=== PATIENT | female | born 1985 | race Caucasian/White ===

== ENCOUNTER 2016-03-24 14:56 | Inpatient (IN) | payer OTHER ==
[~2016-03-24] VITALS: Ht 182.9 cm; Wt 91.0 kg
[~2016-03-24 14:56] MED LIST: BUPROPRION; FLEXERIL 1010 MG/TAB PO; NO HOME MEDICATIONS; TUSS PO; ULTRAM 50MG TAB50 MG PO; ZOLOFT 25MG25 MG PO
[2016-04-08] VITALS (64 sets, daily range): BP systolic 12–128; BP diastolic 50–80; PULSE 63–108; TEMP 97–98.7
[2016-04-08] MEDS ORDERED: BENADRYL25 M2 PO (06:53)
[2016-04-08] MEDS ORDERED: TYLENOL 500MG500 MG PO (06:53)
[2016-04-08] MEDS ORDERED: LEVEMIR FLEX100 U/ML SQ (06:54)
[2016-04-08] MEDS ORDERED: PRENATAL (06:54)
[2016-04-08 07:42] LABS: BASO % 0.2 % (0.0-2.0); EOS # 0.1 (0.0-0.7); EOS % 1.5 % (0-4.0); GRAN # 3.7 (1.4-6.5); GRAN % 61.6 % (42.2-75.2); LYMPH # 1.7 (1.2-3.4); LYMPH % 28.5 % (20.0-51.0); MEAN CELL VOLUME 85 fl (80.0-100.0); MEAN CORPUSCULAR HGB CONC 33 g/dl (33.0-37.0); MEAN PLATELET VOLUME 9.1 fl (7.4-10.4); MONO # 0.5 (0.1-0.6); MONO % 7.5 % (1.7-9.3); PLATELET COUNT 175 K/mm3 (130-400); RED BLOOD COUNT 3.83 M/mm3 (4.10-5.30); REDCELL DISTRIBUTION WIDTH-CV 13.9 % (11.5-14.5)
[2016-04-08] MEDS ORDERED: NOVOLOG 100U100 U/M1 SQ ×2 (07:46→07:47)
[2016-04-08 07:55] LABS: HEMATOCRIT 32.7 % (37.0-47.0); HEMOGLOBIN 10.7 g/dl (12.5-16.0); MEAN CORPUSCULAR HEMOGLOBIN 28 pg (27.0-31.0)
[2016-04-08] MEDS ORDERED: IBU800 M1 PO (22:20)
[2016-04-08] MEDS ORDERED: PERCOCET 325 MG1 TA2 PO (22:20)
[2016-04-09] VITALS (7 sets, daily range): BP systolic 99–112; BP diastolic 51–72; PULSE 59–86; TEMP 97.6–98.1
== END 2016-04-09 23:25 | disposition home or self-care (01) | DRG 775 ==
LOC: OB 04-08 06:28 → LDR 04-08 06:28 → OB 04-09 00:15 → EDSTATUS 04-16 07:17 → LDRO 04-16 14:55
PROVIDERS: Obstetrics & Gynecology
PROC: 10E0XZZ Delivery of Products of Conception, External Approach (ICD-10-PCS; principal; 2016-04-08)
PROC: 3E033VJ Introduction of Other Hormone into Peripheral Vein, Percutaneous Approach (ICD-10-PCS; 2016-04-08)
DX: O24.414 Gestational diabetes mellitus in pregnancy, insulin controlled (principal); Z3A.39 39 weeks gestation of pregnancy; Z37.0 Single live birth
CPT/HCPCS: J1815; J2405; J2590; J7030; J7042; J7120

== ENCOUNTER 2017-03-24 18:40 | Emergency (ER) | payer OTHER ==
[~2017-03-24] VITALS: Ht 182.9 cm; Wt 81.8 kg
[~2017-03-24 18:40] MED LIST changes: +BENADRYL25 M2 PO; +IBU800 M1 PO; +LEVEMIR FLEX100 U/ML SQ; +NOVOLOG 100U100 U/M1 SQ; +PERCOCET 325 MG1 TA2 PO; +PRENATAL; +TYLENOL 500MG500 MG PO
[2017-03-24 18:43] VITALS: TEMP 98.7
[2017-03-24] MEDS ORDERED: ZOLOFT 100MG100 MG PO (18:46)
[2017-03-24] MEDS ORDERED: MINIPRESS 1M1 MG/CAP (18:46)
[2017-03-24] MEDS ORDERED: TAMIFLU 75MG75 MG PO (19:12)
[2017-03-24] MEDS ORDERED: NAPROXEN 3375 MG/TAB PO (19:12)
[2017-03-24 19:32] VITALS: BP 143/88; PULSE 100
== END 2017-03-24 19:31 | disposition home or self-care (01) ==
LOC: COL.ER 18:40
DX: J10.1 Influenza due to other identified influenza virus with other respiratory manifestations (principal)

== ENCOUNTER 2017-04-02 19:15 | Inpatient (IN) | payer OTHER ==
[~2017-04-02] VITALS: Ht 172.7 cm; Wt 80.8 kg
[~2017-04-02 19:15] MED LIST changes: +MINIPRESS 1M1 MG/CAP; +NAPROXEN 3375 MG/TAB PO; +TAMIFLU 75MG75 MG PO; +ZOLOFT 100MG100 MG PO
[2017-04-02 20:50] LABS: BASO % 0.3 % (0.0-2.0); EOS # 0.1 (0.0-0.7); EOS % 0.9 % (0-4.0); GRAN # 6.5 (1.4-6.5); GRAN % 66.7 % (42.2-75.2); HEMATOCRIT 41.8 % (37.0-47.0); HEMOGLOBIN 14.6 g/dl (12.5-16.0); LYMPH # 2.4 (1.2-3.4); LYMPH % 24.7 % (20.0-51.0); MEAN CELL VOLUME 88 fl (80.0-100.0); MEAN CORPUSCULAR HEMOGLOBIN 31 pg (27.0-31.0); MEAN CORPUSCULAR HGB CONC 35 g/dl (33.0-37.0); MEAN PLATELET VOLUME 9.3 fl (7.4-10.4); MONO # 0.7 (0.1-0.6); MONO % 6.7 % (1.7-9.3); PLATELET COUNT 244 K/mm3 (130-400); RED BLOOD COUNT 4.74 M/mm3 (4.10-5.30); REDCELL DISTRIBUTION WIDTH-CV 12.1 % (11.5-14.5)
[2017-04-02 20:51] LABS: COLLECTION METHOD CLEAN CATCH
[2017-04-02 20:56] LABS: PH 6 (5-8); SQUAMOUS EPITHELIAL 0-2 /hpf; URINE APPEARANCE Clear; URINE BACTERIA None Seen /hpf; URINE BILIRUBIN Negative (NEGATIVE); URINE BLOOD Negative (NEGATIVE); URINE COLOR Straw; URINE GLUCOSE 3+ (NEGATIVE); URINE KETONE 1+ (NEGATIVE); URINE LEUKOCYTE ESTERASE Negative (NEGATIVE); URINE NITRATE Negative (NEGATIVE); URINE PROTEIN(semi-quant) Negative (NEGATIVE); URINE RBC 0-2 /hpf; URINE UROBILINOGEN Negative (NEGATIVE)
[2017-04-02 21:01] LABS: ALBUMIN 4.8 gm/dL (3.5-5.0); BILIRUBIN,TOTAL 0.7 mg/dL (0.0-1.0); C-REACTIVE PROTEIN 5.9 mg/dL (0.0-0.9); CALCIUM 10.1 mg/dL (8.4-10.2); CREATININE, serum 0.68 mg/dL (0.52-1.25); POTASSIUM 4.3 mmol/L (3.4-5.0)
[2017-04-02 21:04] LABS: INFLUENZA A NEGATIVE; INFLUENZA B NEGATIVE
[2017-04-02] MEDS ORDERED: ZORVOLEX18 MG PO (22:26)
[2017-04-02] MEDS ORDERED: NEURONTIN300 MG/CAP PO (22:26)
[2017-04-02 23:38] VITALS: BP 123/73; PULSE 98; TEMP 98.4
[2017-04-03 04:37] VITALS: BP 126/66; PULSE 91; TEMP 98.6
[2017-04-03 06:54] LABS: BASO % 0.3 % (0.0-2.0); EOS # 0.1 (0.0-0.7); EOS % 1.6 % (0-4.0); GRAN # 5.6 (1.4-6.5); GRAN % 62.6 % (42.2-75.2); HEMATOCRIT 38.9 % (37.0-47.0); HEMOGLOBIN 13.4 g/dl (12.5-16.0); LYMPH # 2.3 (1.2-3.4); LYMPH % 25.8 % (20.0-51.0); MEAN CELL VOLUME 90 fl (80.0-100.0); MEAN CORPUSCULAR HEMOGLOBIN 31 pg (27.0-31.0); MEAN CORPUSCULAR HGB CONC 34 g/dl (33.0-37.0); MEAN PLATELET VOLUME 9.4 fl (7.4-10.4); MONO # 0.8 (0.1-0.6); MONO % 8.9 % (1.7-9.3); PLATELET COUNT 208 K/mm3 (130-400); RED BLOOD COUNT 4.33 M/mm3 (4.10-5.30); REDCELL DISTRIBUTION WIDTH-CV 12.2 % (11.5-14.5)
[2017-04-03 07:31] LABS: CALCIUM 8.9 mg/dL (8.4-10.2); CREATININE, serum 0.53 mg/dL (0.52-1.25); POTASSIUM 4.3 mmol/L (3.4-5.0)
[2017-04-03 09:29] VITALS: BP 143/76; PULSE 103; TEMP 97.8
[2017-04-03 13:43] VITALS: BP 131/80; PULSE 102; TEMP 98.5
[2017-04-03] MEDS ORDERED: FREESTYLE PREC1 EAC5 MC (15:15)
[2017-04-03] MEDS ORDERED: LANCETS MC (15:16)
[2017-04-03] MEDS ORDERED: LANTUS SOLOS100 U/ML SQ (15:17)
[2017-04-03] MEDS ORDERED: BD ALCOHOL1 SWA TP (15:18)
[2017-04-03] MEDS ORDERED: THE MEDICINE SH1 DE3 MC (15:18)
[2017-04-03] MEDS ORDERED: GLUCOPHAGE500 MG/TAB PO (15:32)
[2017-04-03] MEDS ORDERED: [UNRECOGNIZED DRUG - SUPPLY] (15:33)
[2017-04-03] MEDS ORDERED: GLUCOSE TEST ST1 DEV MC (15:34)
[2017-04-03] MEDS ORDERED: NOVOLOG FLEX100 U/ML SQ (15:34)
== END 2017-04-03 16:22 | disposition home or self-care (01) | DRG 639 ==
LOC: COL.ER 19:15 → SURG 21:17
PROVIDERS: Family Medicine; Nurse Practitioner
DX: E11.65 Type 2 diabetes mellitus with hyperglycemia (principal); J20.9 Acute bronchitis, unspecified; Z20.828 Contact with and (suspected) exposure to other viral communicable diseases
CPT/HCPCS: J1815; J7030

== ENCOUNTER → 2017-04-05 | Outpatient (CLI) | payer OTHER ==
[~2017-04-05] MED LIST changes: +BD ALCOHOL1 SWA TP; +FREESTYLE PREC1 EAC5 MC; +GLUCOPHAGE500 MG/TAB PO; +GLUCOSE TEST ST1 DEV MC; +LANCETS MC; +LANTUS SOLOS100 U/ML SQ; +NEURONTIN300 MG/CAP PO; +NOVOLOG FLEX100 U/ML SQ; +THE MEDICINE SH1 DE3 MC; +ZORVOLEX18 MG PO; +[UNRECOGNIZED DRUG - SUPPLY]
== END ==
LOC: SUN.DIA 13:48
DX: E11.9 Type 2 diabetes mellitus without complications (principal); Z79.4 Long term (current) use of insulin; Z68.24 Body mass index [BMI] 24.0-24.9, adult; Z71.3 Dietary counseling and surveillance
CPT/HCPCS: G0108

== ENCOUNTER → 2017-04-18 | Outpatient (CLI) | payer OTHER | LOC: SUN.DIA 14:08 | DX: E11.9 Type 2 diabetes mellitus without complications (principal); Z79.4 Long term (current) use of insulin; Z71.3 Dietary counseling and surveillance | CPT/HCPCS: G0108 ==

== ENCOUNTER → 2017-05-16 | Outpatient (CLI) | payer OTHER | LOC: SUN.DIA 14:27 | DX: E11.9 Type 2 diabetes mellitus without complications (principal); Z79.4 Long term (current) use of insulin; Z68.25 Body mass index [BMI] 25.0-25.9, adult; Z71.3 Dietary counseling and surveillance | CPT/HCPCS: G0108 ==

== ENCOUNTER → 2017-06-13 | Outpatient (CLI) | payer OTHER | LOC: SUN.DIA 11:36 | DX: E11.9 Type 2 diabetes mellitus without complications (principal); Z79.4 Long term (current) use of insulin; Z68.25 Body mass index [BMI] 25.0-25.9, adult; Z71.3 Dietary counseling and surveillance | CPT/HCPCS: G0108 ==

== ENCOUNTER → 2017-07-25 | Outpatient (CLI) | payer OTHER | LOC: SUN.DIA 13:36 | DX: E11.9 Type 2 diabetes mellitus without complications (principal); Z79.4 Long term (current) use of insulin | CPT/HCPCS: G0108 ==

== ENCOUNTER → 2017-08-24 | Outpatient (CLI) | payer OTHER | LOC: SUN.DIA 08:48 | DX: E11.9 Type 2 diabetes mellitus without complications (principal); Z79.4 Long term (current) use of insulin; Z68.25 Body mass index [BMI] 25.0-25.9, adult; Z71.3 Dietary counseling and surveillance | CPT/HCPCS: G0108 ==

== ENCOUNTER 2019-03-05 20:59 | Emergency (ER) | payer BC, OTHER ==
[~2019-03-05] VITALS: Ht 182.9 cm; Wt 79.5 kg
[2019-03-05 21:02] VITALS: BP 114/70; TEMP 97.5
[2019-03-05] MEDS ORDERED: VALTREX 50500 MG/TAB PO (21:46)
[2019-03-05 22:04] VITALS: PULSE 78
== END 2019-03-05 22:04 | disposition home or self-care (01) ==
LOC: COL.ER 20:59
DX: B99.9 Unspecified infectious disease (principal); H10.89 Other conjunctivitis

== ENCOUNTER 2020-02-22 19:53 | Emergency (ER) | payer OTHER ==
[~2020-02-22] VITALS: Ht 180.3 cm; Wt 75.0 kg
[~2020-02-22 19:53] MED LIST changes: +VALTREX 50500 MG/TAB PO
[2020-02-22 19:59] VITALS: BP 130/83; TEMP 98.7
[2020-02-22] MEDS ORDERED: LIORESAL 1010 MG/TAB PO (20:44)
[2020-02-22 20:57] VITALS: PULSE 97
--- NOTE | 2020-02-24 10:07 | NUR ---
The patient has [employer]. [employer] Operations Manager faxed [facility] notes [facility].
== END 2020-02-22 20:57 | disposition home or self-care (01) ==
LOC: COL.ER 19:53
DX: G89.29 Other chronic pain (principal); M54.5 Low back pain; E10.9 Type 1 diabetes mellitus without complications; Z79.4 Long term (current) use of insulin
CPT/HCPCS: J1885; J2360

== ENCOUNTER 2020-05-11 08:51 | Emergency (ER) | payer OTHER ==
[~2020-05-11] VITALS: Ht 182.9 cm; Wt 73.6 kg
[~2020-05-11 08:51] MED LIST changes: +LIORESAL 1010 MG/TAB PO
[2020-05-11 08:56] VITALS: BP 107/68; TEMP 97.5
[2020-05-11 09:20] LABS: COLLECTION METHOD CLEAN CATCH
[2020-05-11 09:33] LABS: MEAN CELL VOLUME 92 fl (80.0-100.0); MEAN CORPUSCULAR HEMOGLOBIN 31 pg (27.0-31.0); MEAN CORPUSCULAR HGB CONC 34 g/dl (33.0-37.0); MEAN PLATELET VOLUME 9.9 fl (7.4-10.4); PLATELET COUNT 132 K/mm3 (130-400); RED BLOOD COUNT 4.81 M/mm3 (4.10-5.30); REDCELL DISTRIBUTION WIDTH-CV 13.7 % (11.5-14.5)
[2020-05-11 09:34] LABS: ALBUMIN 4.3 gm/dL (3.5-5.0); BILIRUBIN,TOTAL 0.7 mg/dL (0.0-1.0); CALCIUM 9.1 mg/dL (8.4-10.2); CREATININE, serum 0.84 (0.52-1.25); POTASSIUM 3.9 mmol/L (3.4-5.0); TOTAL PROTEIN 7.8 gm/dL (6.4-8.2)
[2020-05-11 10:04] LABS: MUCOUS Present /lpf; PH 5 (5-8); SQUAMOUS EPITHELIAL >50 /hpf; URINE APPEARANCE Cloudy; URINE BACTERIA Occasional /hpf; URINE BILIRUBIN Negative (NEGATIVE); URINE BLOOD Negative (NEGATIVE); URINE COLOR Amber; URINE GLUCOSE Negative (NEGATIVE); URINE KETONE 1+ (NEGATIVE); URINE LEUKOCYTE ESTERASE Negative (NEGATIVE); URINE NITRATE Negative (NEGATIVE); URINE PROTEIN(semi-quant) 2+ (NEGATIVE); URINE UROBILINOGEN Negative (NEGATIVE)
[2020-05-11 10:32] LABS: BAND 22 % (0-10); EOSINOPHIL 1 % (0-4); LYMPHOCYTE 31 % (20.0-51.0); NEUTROPHILS 36 % (42.0-75.2); PLATELET ESTIMATE NORMAL (NORMAL)
[2020-05-11 11:45] VITALS: PULSE 95
== END 2020-05-11 11:45 | disposition home or self-care (01) ==
LOC: COL.ER 08:51
PROVIDERS: Emergency Medicine
DX: R19.7 Diarrhea, unspecified (principal); E11.9 Type 2 diabetes mellitus without complications; Z79.4 Long term (current) use of insulin; Z87.891 Personal history of nicotine dependence
CPT/HCPCS: J2270; J2405; J7120

== ENCOUNTER 2020-05-16 11:04 | Emergency (ER) | payer OTHER ==
[~2020-05-16] VITALS: Ht 182.9 cm; Wt 75.9 kg
[2020-05-16 15:26] LABS: HEMOGLOBIN 11.9 g/dl (12.5-16.0); MEAN CELL VOLUME 95 fl (80.0-100.0); MEAN CORPUSCULAR HEMOGLOBIN 31 pg (27.0-31.0); MEAN CORPUSCULAR HGB CONC 32 g/dl (33.0-37.0); MEAN PLATELET VOLUME 9.4 fl (7.4-10.4); PLATELET COUNT 175 K/mm3 (130-400); RED BLOOD COUNT 3.87 M/mm3 (4.10-5.30); REDCELL DISTRIBUTION WIDTH-CV 13.4 % (11.5-14.5)
[2020-05-16 15:31] LABS: HEMATOCRIT 36.7 % (37.0-47.0)
[2020-05-16 15:46] LABS: ALBUMIN 3.7 gm/dL (3.5-5.0); BILIRUBIN,TOTAL 0.3 mg/dL (0.0-1.0); CALCIUM 8.6 mg/dL (8.4-10.2); CREATININE, serum 0.55 (0.52-1.25); TOTAL PROTEIN 6.9 gm/dL (6.4-8.2)
[2020-05-16 15:51] LABS: BAND 8 % (0-10); EOSINOPHIL 2 % (0-4); LYMPHOCYTE 31 % (20.0-51.0); NEUTROPHILS 49 % (42.0-75.2)
[2020-05-16 15:52] LABS: HYPOCHROMIA 1+
[2020-05-16 15:53] LABS: PLATELET ESTIMATE NORMAL (NORMAL)
[2020-05-16 15:54] LABS: OVALOCYTES 2+
[2020-05-16 16:50] LABS: COLLECTION METHOD CLEAN CATCH
[2020-05-16 16:56] LABS: PH 8 (5-8); SQUAMOUS EPITHELIAL 0-2 /hpf; URINE APPEARANCE Clear; URINE BACTERIA None Seen /hpf; URINE BILIRUBIN Negative (NEGATIVE); URINE BLOOD Negative (NEGATIVE); URINE COLOR Straw; URINE GLUCOSE Negative (NEGATIVE); URINE KETONE Negative (NEGATIVE); URINE LEUKOCYTE ESTERASE Negative (NEGATIVE); URINE NITRATE Negative (NEGATIVE); URINE PROTEIN(semi-quant) Negative (NEGATIVE); URINE RBC 0-2 /hpf; URINE UROBILINOGEN Negative (NEGATIVE)
[2020-05-16 17:25] VITALS: BP 122/76; PULSE 84; TEMP 97.7
[2020-05-18 08:20] LABS: PATHOLOGY DIFF REVIEW OK +
== END 2020-05-16 17:29 | disposition home or self-care (01) ==
LOC: COL.ER 11:04
PROVIDERS: Physician Assistant
DX: G89.29 Other chronic pain (principal); R10.9 Unspecified abdominal pain; E10.9 Type 1 diabetes mellitus without complications; F41.9 Anxiety disorder, unspecified; F43.10 Post-traumatic stress disorder, unspecified; Z32.02 Encounter for pregnancy test, result negative; Z79.4 Long term (current) use of insulin

== ENCOUNTER 2020-09-26 21:35 | Emergency (ER) | payer OTHER ==
[~2020-09-26] VITALS: Ht 180.3 cm; Wt 78.2 kg
[2020-09-26 21:52] VITALS: BP 155/94; TEMP 98.5
[2020-09-26] MEDS ORDERED: ULTRAM 50MG TAB50 MG PO (23:10)
[2020-09-26] MEDS ORDERED: FLEXERIL5 MG PO (23:10)
[2020-09-26 23:16] LABS: CALCIUM 9.5 mg/dL (8.4-10.2); CREATININE, serum 0.61 (0.52-1.25); POTASSIUM 3.9 mmol/L (3.4-5.0)
[2020-09-27] MEDS ORDERED: CLEOCIN HCL300 MG PO (00:40)
[2020-09-27] MEDS ORDERED: PREDNISONE50 MG PO (00:40)
[2020-09-27 01:15] VITALS: PULSE 86
== END 2020-09-27 01:15 | disposition home or self-care (01) ==
LOC: COL.ER 21:35
PROVIDERS: Emergency Medicine
DX: K11.20 Sialoadenitis, unspecified (principal); E10.9 Type 1 diabetes mellitus without complications
CPT/HCPCS: J7512; Q9967

== ENCOUNTER 2021-03-30 23:41 | Emergency (ER) | payer OTHER ==
[~2021-03-30] VITALS: Ht 180.3 cm; Wt 79.5 kg
[~2021-03-30 23:41] MED LIST changes: +CLEOCIN HCL300 MG PO; +FLEXERIL5 MG PO; +PREDNISONE50 MG PO
[2021-03-31] MEDS ORDERED: INSULIN AS100 UNIT/2 SQ (01:22)
[2021-03-31 01:48] LABS: COLLECTION METHOD CLEAN CATCH
[2021-03-31 01:51] LABS: BASO % 0.3 % (0.0-2.0); EOS % 0.5 % (0.0-4.0); GRAN # 3.4 K/mm3 (1.4-6.5); GRAN % 45.4 % (42.2-75.2); HEMATOCRIT 37.4 % (37.0-47.0); HEMOGLOBIN 12.8 g/dl (12.5-16.0); LYMPH # 3.4 K/mm3 (1.2-3.4); LYMPH % 45.2 % (20.0-51.0); MEAN CELL VOLUME 87 fl (80.0-100.0); MEAN CORPUSCULAR HEMOGLOBIN 30 pg (27-31); MEAN CORPUSCULAR HGB CONC 34 g/dl (33.0-37.0); MEAN PLATELET VOLUME 9.7 fl (7.4-10.4); MONO # 0.6 K/mm3 (0.1-0.6); MONO % 8.3 % (1.7-9.3); PLATELET COUNT 232 K/mm3 (130-400); REDCELL DISTRIBUTION WIDTH-CV 13.5 % (11.5-14.5)
[2021-03-31 01:53] LABS: PH 6 (5-8); SQUAMOUS EPITHELIAL None Seen /hpf (0-10); URINE APPEARANCE Clear (CLEAR/HAZY); URINE BACTERIA None Seen /hpf (NONE SEEN); URINE BILIRUBIN Negative (NEGATIVE); URINE BLOOD 1+ (NEGATIVE); URINE COLOR Straw (YELLOW); URINE GLUCOSE 3+ (NEGATIVE); URINE KETONE Negative (NEGATIVE); URINE LEUKOCYTE ESTERASE Negative (NEGATIVE); URINE NITRATE Negative (NEGATIVE); URINE PROTEIN(semi-quant) Negative (NEGATIVE); URINE RBC 0-2 /hpf (0-2); URINE UROBILINOGEN Negative (NEGATIVE)
[2021-03-31 02:09] LABS: ALBUMIN 4.3 gm/dL (3.5-5.0); CALCIUM 9.7 mg/dL (8.4-10.2); CREATININE, serum 0.96 mg/dL (0.57-1.11); TOTAL PROTEIN 8.2 gm/dL (6.2-8.1)
[2021-03-31 02:31] LABS: BILIRUBIN,TOTAL 0.4 mg/dL (0.2-1.2)
[2021-03-31 03:58] VITALS: BP 138/75; PULSE 74; TEMP 98.3
== END 2021-03-31 03:58 | disposition home or self-care (01) ==
LOC: COL.ER 23:41
PROVIDERS: Emergency Medicine
DX: E10.65 Type 1 diabetes mellitus with hyperglycemia (principal); Z96.41 Presence of insulin pump (external) (internal)
CPT/HCPCS: J1815; J7120

== ENCOUNTER 2023-03-17 21:27 | Emergency (ER) | payer OTHER ==
[~2023-03-17] VITALS: Ht 180.3 cm; Wt 81.8 kg
[~2023-03-17 21:27] MED LIST changes: +CIPRODEX OS; +INSULIN AS100 UNIT/2 SQ; +NORCO 325 MG-51 TAB PO; +ROBAXIN 75750 MG/TAB PO; +VALTREX1 GM PO
[2023-03-17 21:32] VITALS: TEMP 98.3
[2023-03-17] MEDS ORDERED: ZOVIRAX400 MG PO (22:18)
[2023-03-17 22:57] VITALS: BP 133/89; PULSE 78
== END 2023-03-17 22:57 | disposition home or self-care (01) ==
LOC: COL.ER 21:27
DX: H57.11 Ocular pain, right eye (principal)

== ENCOUNTER 2023-07-21 17:46 | Emergency (ER) | payer OTHER ==
[~2023-07-21] VITALS: Ht 182.9 cm; Wt 81.8 kg
[~2023-07-21 17:46] MED LIST changes: +ZOVIRAX400 MG PO
[2023-07-21 17:56] VITALS: TEMP 98.1
[2023-07-21] MEDS ORDERED: Ketorolac 30 MG/ML VIAL IM ONE (18:30)
[2023-07-21] MEDS ORDERED: FLEXERIL 1010 MG/TAB PO (18:35)
[2023-07-21] MEDS ORDERED: MOBIC15 MG PO (18:41)
[2023-07-21 19:10] VITALS: BP 143/89; PULSE 103
== END 2023-07-21 19:14 | disposition home or self-care (01) ==
LOC: COL.ER 17:46
DX: M54.12 Radiculopathy, cervical region (principal); E10.9 Type 1 diabetes mellitus without complications
CPT/HCPCS: J1885; J2360